=== PATIENT | male | born 1975 | race Hispanic/Latino ===

== ENCOUNTER 2017-06-29 06:55 | Emergency (ER) | payer SELFPAY ==
[2017-06-29] MEDS ORDERED: Dexamethasone 10 MG/ML VIAL ONE (07:21)
[2017-06-29] MEDS ORDERED: Ketorolac Tromethamine 60 MG/2 ML VIAL ONE (07:21)
[2017-06-29] MEDS ORDERED: Lidocaine 1% PF 5 ML VIAL FS SCH (07:45)
[2017-06-29] MEDS ORDERED: cefTRIAXone\\ROCEPHIN 1 GM VIAL IM SCH (07:45)
--- NOTE | 2017-06-29 08:03 | RAD ---
SINGLE VIEW OF THE CHEST: Comparison: None. History: Cough, congestion for two weeks. FINDINGS: Single view of the chest shows a normal sized cardiomediastinal silhouette. There is no evidence of c onsolidation, mass, or pleural effusion. The bones are unremarkable. IMPRESSION: No evidence of acute cardiopulmonary disease. POS: [id number]
[2017-06-29] MEDS ORDERED: Lidocaine 1% PF 5 ML VIAL ONE (08:23)
== END 2017-06-29 09:03 | disposition home or self-care (01) ==
LOC: ERS 06:55
DX: J11.1 Influenza due to unidentified influenza virus with other respiratory manifestations (principal); J20.9 Acute bronchitis, unspecified; F17.210 Nicotine dependence, cigarettes, uncomplicated
CPT/HCPCS: 71045; 87081; 87430; 96372; J0696; J1100; J1885; J2001